=== PATIENT | male | born 1975 | race Caucasian/White ===

== ENCOUNTER 2019-09-25 10:27 | Emergency (ER) | payer BC ==
[2019-09-25] MEDS ORDERED: diphenhydrAMINE 50 MG/ML SDV IVPUSH ONE (10:39)
[2019-09-25] MEDS ORDERED: LORazepam 2 MG/ML SDV IVPUSH ONE (10:39)
[2019-09-25] MEDS ORDERED: Sodium Chloride 0.9% 10 ML Syringe FLUSH PRN (10:44)
[2019-09-25] MEDS ORDERED: methylPREDNISolone Sodium Succinate 125 MG/2 ML SDV IVPUSH ONE (10:45)
[2019-09-25] MEDS ORDERED: Sodium Chloride 0.9% 1,000 ML IV ONE (10:45)
[2019-09-25] MEDS ORDERED: Famotidine 20 MG/2 ML SDV IVPUSH ONE (10:45)
--- NOTE | 2019-09-25 11:07 | EDM.PDOC ---
ED HPI GENERAL MEDICAL PROBLEM - General Chief Complaint: Allergic Reaction Stated Complaint: ALLERGIC REACTION Time Seen by Provider: 09/25/19 10:40 Source of Information: Reports: Patient, RN Notes Reviewed History Limitations: Reports: No Limitations - History of Present Illness INITIAL COMMENTS - FREE TEXT/NARRATIVE: Patient is a 44-year-old male who presents to the ED for further evaluation of a possible allergic reaction. The patient notes that abruptly at around 10 AM this morning, he started to develop burning, itching, to his back, chest, hands and feet. Patient states that he started "freaking out" when the symptoms started, he notes he has a history of anxiety as well. The patient notes that he did not change anything different from what he normally does, he has not had any changes in lotions soaps or otherwise. He states that he had taken 6 or 8 tablets of the 200 mg ibuprofen patient notes he has had one instance like this is happened in the past, that was this last Star when he was at home in [place] and he states he was snacking on the relish tray and had some little Smokies that had barbecue sauce on them. He notes however today the symptoms seem to start more abruptly. He also notes that he has been under extreme stress at work as well. Patient is denying any respiratory distress, chest pain or shortness of breath, nausea or vomiting or diarrhea at this time. For a headache that he had this morning. Patient states that he ate a bag of chili cheese Fritos and a banana before symptom onset. - Related Data Allergies Allergy/AdvReac Type Severity Reaction Status Date / Time No Known Allergies Allergy Verified 09/25/19 10:35 Home Meds: Home Meds Orphenadrine [Norflex] 1 tab PO Q12H PRN #14 tab.er 08/20/18 [Rx] LORazepam [Ativan] 0.5 mg PO TID PRN #10 tablet 09/25/19 [Rx] predniSONE 20 mg PO ASDIRECTED #15 tab 09/25/19 [Rx] Past Medical History HEENT History: Reports: Other (See Below) Other HEENT History: lasik surgery Gastrointestinal History: Reports: GERD Genitourinary History: Reports: Other (See Below) Other Genitourinary History: difficulty starting stream when voiding Psychiatric History: Reports: Anxiety - Infectious Disease History Infectious Disease History: Reports: Chicken Pox, Influenza - Past Surgical History HEENT Surgical History: Reports: LASIK, Oral Surgery GI Surgical History: Reports: Appendectomy Musculoskeletal Surgical History: Reports: Other (See Below) Social & Family History - Family History Family Medical History: Noncontributory - Tobacco Use Smoking Status *Q: Current Every Day Smoker Years of Tobacco use: 20 Packs/Tins Daily: 1 - Caffeine Use Caffeine Use: Reports: Coffee - Living Situation & Occupation Living situation: Reports: , with Spouse Occupation: Employed ([employer]) ED ROS ALLERGIC REACTION - Review of Systems Review Of Systems: See Below Constitutional: Denies: Fever, Chills Respiratory: Denies: Shortness of Breath, Cough Cardiovascular: Denies: Chest Pain GI/Abdominal: Denies: Abdominal Pain, Diarrhea, Nausea, Vomiting Skin: Reports: Erythema (generalized, worse over wrists, back and chest) Neurological: Denies: Headache, Numbness, Tingling Psychiatric: Reports: Anxiety ED EXAM GENERAL NO PERIP PULSE - Physical Exam Exam: See Below Exam Limited By: No Limitations General Appearance: Alert, WD/WN, No Apparent Distress, Anxious Eye Exam: Bilateral Eye: EOMI, Normal Inspection, PERRL Throat/Mouth: Normal Inspection, Normal Lips, Normal Teeth, Normal Gums, Normal Oropharynx, Normal Voice, No Airway Compromise Head: Atraumatic, Normocephalic Neck: Normal Inspection Respiratory/Chest: No Respiratory Distress, Lungs Clear, Normal Breath Sounds, No Accessory Muscle Use, Chest Non-Tender Cardiovascular: Normal Peripheral Pulses, Regular Rate, Rhythm, No Murmur GI/Abdominal: Normal Bowel Sounds, Soft, Non-Tender, No Distention, No Mass Back Exam: Normal Inspection Extremities: Normal Inspection, Normal Capillary Refill, Redness (generalized over wrists) Neurological: Alert, Oriented, Normal Cognition, No Motor/Sensory Deficits Psychiatric: Anxious (pt is talking very rapidly) Skin Exam: Warm, Dry, Intact, No Rash, Erythema (generalized over wrists, chest and back) Course - Vital Signs Last Recorded V/S: Last Vital Signs Temp 98.0 F 09/25/19 10:32 Pulse 104 H 09/25/19 10:32 Resp 16 09/25/19 10:32 BP 154/98 H 09/25/19 10:32 Pulse Ox 100 09/25/19 10:32 - Orders/Labs/Meds Orders: Active Orders 24 hr Category Date Time Status Peripheral IV Care [RC] . DIRECTED Care 09/25/19 10:44 Ordered Sodium Chloride 0.9% [Normal Saline] 1,000 ml Med 09/25/19 10:45 Ordered IV ONETIME Sodium Chloride 0.9% [Saline Flush] Med 09/25/19 10:44 Ordered 10 ml FLUSH ASDIRECTED PRN Peripheral IV Insertion Adult [OM.PC] Routine Oth 09/25/19 10:44 Ordered Medication Orders Sodium Chloride (Normal Saline) 1,000 mls @ 500 mls/hr IV ONETIME ONE Stop: 09/25/19 12:44 Last Admin: 09/25/19 11:01 Dose: 500 mls/hr Sodium Chloride (Saline Flush) 10 ml FLUSH ASDIRECTED PRN PRN Reason: Keep Vein Open Last Admin: 09/25/19 11:01 Dose: 10 ml Labs: Laboratory Tests 09/25/19 Range/Units 11:45 Urine Opiates Screen Negative (ZULEZM=349) Ur Buprenorphine Scrn Negative (CUTOFF=10) Ur Oxycodone Screen Negative (UGF4HH=882) Urine Methadone Screen Negative (AHK2DY=069) Ur Propoxyphene Screen Negative (EGDLGH=366) Ur Barbiturates Screen Negative (GAXQIN=827) Ur Tricyclics Screen Negative (VCEWTF=105) Ur Phencyclidine Scrn Negative (CUTOFF=25) Ur Amphetamine Screen Negative (ZLCQOU=386) U Methamphetamines Scrn Negative (BQZLTN=729) U Benzodiazepines Scrn Negative (PTHCJC=574) U Cocaine Metab Screen Negative (FCMMEW=443) U Marijuana (THC) Screen Negative (CUTOFF=50) Meds: Medications Generic Name Dose Route Start Last Admin Trade Name Freq PRN Reason Stop Dose Admin Sodium Chloride 1,000 mls @ 500 mls/hr 09/25/19 10:45 09/25/19 11:01 Normal Saline IV 09/25/19 12:44 500 mls/hr ONETIME ONE Administration Sodium Chloride 10 ml 09/25/19 10:44 09/25/19 11:01 Saline Flush FLUSH 10 ml ASDIRECTED PRN Administration Keep Vein Open Discontinued Medications Generic Name Dose Route Start Last Admin Trade Name Freq PRN Reason Stop Dose Admin Diphenhydramine HCl 25 mg 09/25/19 10:39 09/25/19 10:46 Benadryl IVPUSH 09/25/19 10:40 25 mg ONETIME ONE Administration Famotidine 20 mg 09/25/19 10:45 09/25/19 10:59 Pepcid IVPUSH 09/25/19 10:46 20 mg ONETIME ONE Administration Lorazepam 1 mg 09/25/19 10:39 09/25/19 10:44 Ativan IVPUSH 09/25/19 10:40 1 mg ONETIME ONE Administration Methylprednisolone Sodium Succinate 125 mg 09/25/19 10:45 09/25/19 10:56 Solu-Medrol IVPUSH 09/25/19 10:46 125 mg ONETIME ONE Administration - Re-Assessments/Exams Free Text/Narrative Re-Assessment/Exam: 09/25/19 11:15 Patient presents to the ED for the evaluation of a possible allergic reaction. Patient is not an JOAQUÍN or respiratory distress at this time, IV drip was placed at time of triage, he has been given 25 mg of IV Benadryl, 125 mg Solu-Medrol, 20 mg Pepcid, IV fluids, and 1 mg Ativan for anxiety. Unsure as to whether this could be a developing food allergy, or a possible anxiety attack, however he states after he got the Benadryl and Ativan that he began to feel much better. Will reassess once the meds have been given ample time to work. 09/25/19 12:21 Patient was reassessed at bedside, states he is feeling much better after the medication provided. I will give him an outpatient burst of prednisone and a few tablets of Ativan for suspected anxiety issues. He is not been on any medications for this on outpatient basis, and I told him to trial this to see if it does not help his anxiety. Departure - Departure Time of Disposition: 12:21 Disposition: Home, Self-Care 01 Condition: Fair Clinical Impression: Anxiety Allergic reaction Qualifiers: Encounter type: initial encounter Qualified Code(s): T78.40XA - Allergy, unspecified, initial encounter - Discharge Information *PRESCRIPTION DRUG MONITORING PROGRAM REVIEWED*: Yes *COPY OF PRESCRIPTION DRUG MONITORING REPORT IN PATIENT SRAVAN: No Prescriptions: LORazepam [Ativan] 0.5 mg PO TID PRN #10 tablet PRN Reason: Anxiety predniSONE 20 mg PO ASDIRECTED #15 tab Instructions: Allergies, Adult, [id number] Forms: ED Department Discharge Additional Instructions: You were evaluated in the ER today regarding your possible allergic reaction. You could not be specified at today's ER visit, recommend you try to limit your intake of chili cheese Fritos or like a barbecue a spice type of food, to see if this does not help prevent some of these symptoms. Please also try to refrain from taking any sort of NSAIDs, as you thought maybe this could have been a trigger. You may take Tylenol 1000 mg at the onset of a headache to see if this does not help. You were also given some medication for suspected anxiety, you were also given a prescription for this on outpatient basis, please take 1 tablet at the onset of anxiety feelings. You were given a prescription for prednisone as well for further management of the possible allergic reaction. Please take as directed. You were given a combination of some IV fluids, and some IV medications in the ER that seemed to help relieve your symptoms. Please return to the ER at any time if your symptoms change or worsen. Sepsis Event Note - Evaluation Sepsis Screening Result: No Definite Risk - Focused Exam Vital Signs: Vital Signs Temp Pulse Resp BP Pulse Ox 09/25/19 10:32 98.0 F 104 H 16 154/98 H 100 Date Exam was Performed: 09/25/19 Time Exam was Performed: 12:21 - My Orders Last 24 Hours: My Active Orders 09/25/19 10:44 Peripheral IV Care [RC] . DIRECTED Sodium Chloride 0.9% [Saline Flush] 10 ml FLUSH ASDIRECTED PRN Peripheral IV Insertion Adult [OM.PC] Routine 09/25/19 10:45 Sodium Chloride 0.9% [Normal Saline] 1,000 ml IV ONETIME - Assessment/Plan Last 24 Hours: My Active Orders 09/25/19 10:44 Peripheral IV Care [RC] . DIRECTED Sodium Chloride 0.9% [Saline Flush] 10 ml FLUSH ASDIRECTED PRN Peripheral IV Insertion Adult [OM.PC] Routine 09/25/19 10:45 Sodium Chloride 0.9% [Normal Saline] 1,000 ml IV ONETIME
== END 2019-09-25 12:46 | disposition home or self-care (01) ==
LOC: JD.ED 10:27
DX: T78.40XA Allergy, unspecified, initial encounter (principal); F41.9 Anxiety disorder, unspecified; F17.210 Nicotine dependence, cigarettes, uncomplicated; Z79.899 Other long term (current) drug therapy
CPT/HCPCS: 80306; 96361; 96374; 96375; 99283; J1200; J2060; J2930; J3490; J7030; 99284